=== PATIENT | female | born 1935 | race Caucasian/White ===

== ENCOUNTER 2018-09-16 15:03 | Emergency (ER) | payer OTHER, MEDICARE ==
[~2018-09-16] VITALS: Ht 157.5 cm; Wt 49.0 kg
[~2018-09-16 15:03] MED LIST: ACETYLCYST100 MG/1 M MC; ACID CONTROL20 MG GT; AMBEREN GT; AMBIEN 5 MG TABL5 MG PO; ATIVAN0.5 MG PO; ATROVENT IH; AUGMENTIN 875875 MG PO; B12INJ IM; BENEFIBER1 EAC1 PER TUBE; CERTAVITE SR W1 EACH PO; COLESTID5 GM GT; CYANOCOBALAM1000 MCG PO; ENALAPRIL MALEA10 M1 PO; FLAGYL500 MG PO; FLONASE 0.05%50 MCG NS; GUAIFEN DM PO; HYDROCODONE-AP1 EA12 PO; K-DUR 20 MEQ T20 MEQ GT; LEXAPRO20 MG PO; LOVENOX SQ; MECLIZINE HCL25 M1 PO; METOCLOPRAM5 MG/5 ML PO; METOPROLOL TART25 M1 PO; MIRALAX255 GM GT; MORPHINE; POTASSIUM20 MEQ/15 PER TUBE; PROBIOTIC1 EAC1 PER TUBE; PROBIOTIC1 EAC1 PO; PROMETHAZINE12.5 M4 RE; REMERON15 MG GT; ROBINUL IJ; ROBITUSSIN100 MG/53 PER TUBE; TYLENOL; VITAMIN D5000 UNIT PO; XOPENEX0.63 MG/3 IH
[2018-09-16 18:25] VITALS: BP 137/55
== END 2018-09-16 18:28 | disposition home or self-care (01) ==
LOC: ER 15:03
DX: K94.23 Gastrostomy malfunction (principal); I10 Essential (primary) hypertension; K21.9 Gastro-esophageal reflux disease without esophagitis; E78.5 Hyperlipidemia, unspecified; M81.0 Age-related osteoporosis without current pathological fracture; Z87.01 Personal history of pneumonia (recurrent); Y84.8 Other medical procedures as the cause of abnormal reaction of the patient, or of later complication, without mention of misadventure at the time of the procedure; Y82.8 Other medical devices associated with adverse incidents